=== PATIENT | female | born 1965 | race Two or more races ===

== ENCOUNTER → 2025-02-21 08:49 | Outpatient (REF) | payer OTHER, SELFPAY | LOC: EMG 08:49 | PROVIDERS: ATTENDING PHYSICIAN Family Medicine; FAMILY PHYSICIAN Family Medicine | DX: S46.819D Strain of other muscles, fascia and tendons at shoulder and upper arm level, unspecified arm, subsequent encounter (principal); S29.011D Strain of muscle and tendon of front wall of thorax, subsequent encounter; R20.0 Anesthesia of skin | CPT/HCPCS: 95886; 95909 ==

== ENCOUNTER → 2025-03-14 15:04 | Outpatient (REF) | payer OTHER, SELFPAY | LOC: PAVMRI 15:04 | PROVIDERS: ATTENDING PHYSICIAN Family Medicine; FAMILY PHYSICIAN Family Medicine | DX: S29.011D Strain of muscle and tendon of front wall of thorax, subsequent encounter (principal) | CPT/HCPCS: 71550 ==